=== PATIENT | male | born 1985 | race Caucasian/White ===

== ENCOUNTER 2020-11-27 10:26 | Outpatient (CLI) | payer OTHER, SELFPAY | END 2020-11-27 10:27 | disposition home or self-care (01) | LOC: SPT 10:27 | PROVIDERS: Visit Provider Orthopaedic Surgery | DX: Z46.89 Encounter for fitting and adjustment of other specified devices (principal); S82.831D Other fracture of upper and lower end of right fibula, subsequent encounter for closed fracture with routine healing; X58.XXXD Exposure to other specified factors, subsequent encounter | CPT/HCPCS: 97760; L4361 ==

== ENCOUNTER → 2020-12-25 09:46 | Outpatient (BNVA) | payer OTHER, SELFPAY | PROVIDERS: Visit Provider Orthopaedic Surgery | DX: S82.839A Other fracture of upper and lower end of unspecified fibula, initial encounter for closed fracture (principal); X58.XXXA Exposure to other specified factors, initial encounter | CPT/HCPCS: 73610 ==